=== PATIENT | female | born 1980 | race Caucasian/White ===

== ENCOUNTER 2017-07-19 12:18 | Inpatient (IN) | payer BC, OTHER ==
[2017-07-19] VITALS: BP 134/88
[~2017-07-19] VITALS: Ht 160 cm; Wt 106.6 kg
[2017-07-19 12:41] LABS: *URINE HCG, QUAL NEGATIVE (NEGATIVE)
[2017-07-19 12:53] LABS: *AMPHETAMINE, URINE NEGATIVE (NEGATIVE); *BARBITURATE, URINE NEGATIVE (NEGATIVE); *CANNABINOID, URINE NEGATIVE (NEGATIVE); *COCCAINE, URINE NEGATIVE (NEGATIVE); *OPIATE, URINE NEGATIVE (NEGATIVE); *PHENCYCLIDINE SCREEN,URINE NEGATIVE (NEGATIVE)
[2017-07-19] MEDS ORDERED: MIRALAX 17 GM POWD.PACK PO PRN (13:15)
[2017-07-19] MEDS ORDERED: NICOTINE 14 MG/24HR PATCH TD PRN (13:15)
[2017-07-19] MEDS ORDERED: DIAZEPAM 10 MG TABLET PO PRN (13:15)
[2017-07-19] MEDS ORDERED: ONDANSETRON 4 MG/2 ML VIAL IM PRN (13:15)
[2017-07-19] MEDS ORDERED: DICYCLOMINE HCL 20 MG TABLET PO PRN (13:15)
[2017-07-19] MEDS ORDERED: NICOTINE POLACRILEX 4 MG GUM-PK OF TEN BC PRN (13:15)
[2017-07-19] MEDS ORDERED: DIAZEPAM 5 MG TABLET PO PRN (13:15)
[2017-07-19] MEDS ORDERED: MAGNESIUM HYDROXIDE 30 ML LIQUID UDC PO PRN (13:15)
[2017-07-19] MEDS ORDERED: PRAZOSIN HCL 1 MG CAPSULE PO PRN (13:15)
[2017-07-19] MEDS ORDERED: LOPERAMIDE HCL 2 MG CAPSULE PO PRN ×2 (13:15)
[2017-07-19] MEDS ORDERED: LORAZEPAM 2 MG/1 ML VIAL IM PRN (13:15)
[2017-07-19] MEDS ORDERED: CLONIDINE HCL 0.1 MG TABLET PO PRN (13:15)
[2017-07-19] MEDS ORDERED: MAG HYDROX/AL HYDROX/SIMETH 30 ML LIQUID UDC PO PRN (13:15)
[2017-07-19 13:43] LABS: *URINE HCG, QUAL NEGATIVE (NEGATIVE)
[2017-07-19] MEDS ORDERED: LITH600C PO (13:54)
[2017-07-19] MEDS ORDERED: HYDR50CA5 PO (13:54)
[2017-07-19] MEDS ORDERED: LAMO150T PO (13:54)
[2017-07-19] MEDS ORDERED: PRAZ2CAP2 PO (13:54)
[2017-07-19] MEDS: PHENOBARBITAL 60 MG TABLET PO SCH ×2 (14:11→17:20)
[2017-07-19 15:30] VITALS: BP 137/83
[2017-07-19] MEDS: DIAZEPAM 10 MG TABLET PO PRN ×2 (15:52→22:19)
[2017-07-19 16:00] VITALS: BP 139/87
[2017-07-19 17:04] VITALS: BP 139/87
[2017-07-19] MEDS: IBUPROFEN 600 MG TABLET PO PRN ×2 (17:22→23:37)
[2017-07-19 17:43] LABS: BASOPHILS % (AUTO) 0.7 % (0.0-2.0); EOSINOPHILS # (AUTO) 0.1 K/uL (0.0-0.7); EOSINOPHILS % (AUTO) 0.9 % (0.0-7.0); HEMOGLOBIN 10.3 g/dL (10.9-14.3); LYMPHOCYTES # (AUTO) 1.5 K/uL (20.0-40.0); LYMPHOCYTES % (AUTO) 21.4 % (20.5-51.5); MEAN CORPUSCULAR HEMOGLOBIN 28.3 uug (24.7-32.8); MEAN CORPUSCULAR HGB CONC 32 g/dL (32.3-35.6); MEAN CORPUSCULAR VOLUME 87.7 fL (75.5-95.3); MONOCYTES # (AUTO) 0.7 K/uL (2.0-10.0); MONOCYTES % (AUTO) 9.6 % (0.0-11.0); NEUTROPHILS # (AUTO) 4.6 K/uL (1.8-8.9); NEUTROPHILS % (AUTO) 67.4 % (38.5-71.5); PLATELET COUNT (AUTO) 283 K/uL (179-408); RED BLOOD CELL COUNT(AUTO) 3.64 MIL/uL (3.63-4.92); WHITE BLOOD COUNT (AUTO) 6.8 K/uL (3.8-11.8)
[2017-07-19 17:49] LABS: ETHANOL < 3 MG/DL (0-0); THYROID STIMULATING HORMONE 1.672 mIU/mL (0.358-3.740)
[2017-07-19 18:53] LABS: ALANINE AMINOTRANSFERASE 28 U/L (14-59); ALKALINE PHOSPHATASE 63 U/L (50-136); ASPARTATE AMINOTRANSFERASE 24 U/L (15-37); BILIRUBIN,TOTAL 0.4 mg/dL (0.2-1.0); CARBON DIOXIDE 21 mmol/L (21-32); CHLORIDE 107 mmol/L (98-107); CREATININE 0.9 mg/dL (0.6-1.3); GLUCOSE 85 mg/dL (74-106); MAGNESIUM 1.9 mg/dL (1.8-2.4); POTASSIUM 3.6 mmol/L (3.5-5.1); TOTAL PROTEIN, SERUM 6.8 g/dL (6.4-8.2); UREA NITROGEN, BLOOD 11 mg/dL (7-18)
[2017-07-19 20:00] VITALS: BP 120/88
[2017-07-19] MEDS ORDERED: PHENOBARBITAL 60 MG TABLET PO SCH (22:00)
[2017-07-19] MEDS ORDERED: LAMOTRIGINE 200 MG TABLET PO SCH (22:15)
[2017-07-19] MEDS ORDERED: LITHIUM CARBONATE 300 MG TABLET ONE (22:47)
[2017-07-19] MEDS: LITHIUM CARBONATE 300 MG TABLET PO SCH (23:07)
[2017-07-19] MEDS: ONDANSETRON ODT 4 MG TAB.RAPDIS SL PRN (23:37)
[2017-07-20] VITALS: BP 134/88
[2017-07-20 04:00] VITALS: BP 99/64
[2017-07-20] MEDS: IBUPROFEN 600 MG TABLET PO PRN ×3 (06:13→18:38)
[2017-07-20] MEDS: DIAZEPAM 10 MG TABLET PO PRN ×2 (06:13→12:07)
[2017-07-20 08:00] VITALS: BP 122/81
[2017-07-20] MEDS: MULTIVITAMINS,THERAPEUTIC TABLET PO SCH (08:34)
[2017-07-20] MEDS: PHENOBARBITAL 60 MG TABLET PO SCH ×3 (08:34→20:46)
[2017-07-20] MEDS ORDERED: TUBERCULIN,PURIF.PROT.DERIV. 5 TU/0.1 ML TEST ID ONE (09:00)
[2017-07-20] MEDS: ONDANSETRON ODT 4 MG TAB.RAPDIS SL PRN ×2 (09:09→21:33)
[2017-07-20] MEDS ORDERED: PRAZOSIN HCL 1 MG CAPSULE PO PRN (11:15)
[2017-07-20 12:00] VITALS: BP 129/75
[2017-07-20 16:00] VITALS: BP 139/88
[2017-07-20] MEDS ORDERED: TRAZODONE 50 MG TABLET PO PRN (16:00)
[2017-07-20] MEDS: HYDROXYZINE PAMOATE 25 MG CAPSULE PO PRN (18:38)
[2017-07-20 20:00] VITALS: BP 132/90
[2017-07-20] MEDS: LITHIUM CARBONATE 300 MG TABLET PO SCH (20:46)
[2017-07-20] MEDS: LAMOTRIGINE 200 MG TABLET PO SCH (20:47)
[2017-07-20] MEDS ORDERED: LITHIUM CARBONATE 300 MG TABLET PO SCH (21:00)
[2017-07-20] MEDS: ACETAMINOPHEN 325 MG TABLET PO PRN (21:23)
[2017-07-21] VITALS (7 sets, daily range): BP systolic 119–144; BP diastolic 70–97
[2017-07-21 08:06] LABS: HEPATITIS B SURFACE AG Negative (Negative); VIT D, 25-HYDROXY 18.9 ng/mL (30.0-100.0)
[2017-07-21] MEDS: MULTIVITAMINS,THERAPEUTIC TABLET PO SCH (08:48)
[2017-07-21] MEDS: IBUPROFEN 600 MG TABLET PO PRN (08:49)
[2017-07-21] MEDS: DIAZEPAM 10 MG TABLET PO PRN (08:49)
[2017-07-21] MEDS ORDERED: PHENOBARBITAL 60 MG TABLET PO SCH ×2 (09:00→21:00)
[2017-07-21] MEDS: PHENOBARBITAL 60 MG TABLET PO SCH ×2 (13:16→16:36)
[2017-07-21] MEDS: ASPIRIN/ACETAMINOPHEN/CAFFEINE TABLET PO PRN ×2 (13:20→20:36)
[2017-07-21] MEDS ORDERED: TRAZODONE 50 MG TABLET PO PRN (17:00)
[2017-07-21] MEDS: ONDANSETRON ODT 4 MG TAB.RAPDIS SL PRN (18:25)
[2017-07-21 20:06] LABS: *ANTI-SCLERODERMA-70 AB <0.2 AI (0.0-0.9); *SJOGREN'S ANTI-SS-A 0.2 AI (0.0-0.9); *SJOGREN'S ANTI-SS-B <0.2 AI (0.0-0.9); *SMITH ANTIBODIES 0.3 AI (0.0-0.9); ANTI-DNA(DS) AB, QN 1 IU/mL (0-9)
[2017-07-21] MEDS: LITHIUM CARBONATE 300 MG TABLET PO SCH (20:33)
[2017-07-21] MEDS: TRAZODONE 100 MG TABLET PO PRN (20:34)
[2017-07-21] MEDS: PRAZOSIN HCL 1 MG CAPSULE PO PRN (20:35)
[2017-07-21] MEDS: LAMOTRIGINE 200 MG TABLET PO SCH (20:36)
[2017-07-21] MEDS: HYDROXYZINE PAMOATE 25 MG CAPSULE PO PRN (20:43)
[2017-07-22 04:09] VITALS: BP 110/63
[2017-07-22] MEDS: CLONIDINE HCL 0.1 MG TABLET PO PRN (04:14)
[2017-07-22] MEDS: ONDANSETRON ODT 4 MG TAB.RAPDIS SL PRN ×3 (04:21→21:04)
[2017-07-22] MEDS: IBUPROFEN 800 MG TABLET PO PRN ×2 (04:21→15:19)
[2017-07-22 08:00] VITALS: BP 99/56
[2017-07-22] MEDS: PHENOBARBITAL 60 MG TABLET PO SCH ×3 (08:59→21:05)
[2017-07-22] MEDS: MULTIVITAMINS,THERAPEUTIC TABLET PO SCH (09:00)
[2017-07-22] MEDS: CHOLECALCIFEROL 1,000 UNIT TABLET PO SCH (09:00)
[2017-07-22] MEDS: ASPIRIN/ACETAMINOPHEN/CAFFEINE TABLET PO PRN ×2 (09:01→21:05)
[2017-07-22] MEDS: HYDROXYZINE PAMOATE 25 MG CAPSULE PO PRN ×2 (09:01→21:05)
[2017-07-22 12:15] VITALS: BP 121/79
[2017-07-22] MEDS ORDERED: LAMO200T2 PO (12:59)
[2017-07-22] MEDS ORDERED: HYDR-3895 PO (12:59)
[2017-07-22] MEDS ORDERED: IBUP-1957 PO (12:59)
[2017-07-22] MEDS ORDERED: DIPH50CA37 PO (12:59)
[2017-07-22] MEDS ORDERED: PRAZ1CAP2 PO (12:59)
[2017-07-22] MEDS ORDERED: TRAZ-147 PO (12:59)
[2017-07-22] MEDS ORDERED: CHOL10002 PO (12:59)
[2017-07-22] MEDS ORDERED: CLON0.1T14 PO (12:59)
[2017-07-22] MEDS ORDERED: LITH300T3 PO (12:59)
[2017-07-22] MEDS ORDERED: OXCA150T5 PO (12:59)
[2017-07-22] MEDS ORDERED: OXCARBAZEPINE 150 MG TABLET PO ONE (13:00)
[2017-07-22 16:30] VITALS: BP 110/71
[2017-07-22 20:00] VITALS: BP 115/80
[2017-07-22] MEDS: PRAZOSIN HCL 1 MG CAPSULE PO PRN (21:05)
[2017-07-22] MEDS: LITHIUM CARBONATE 300 MG TABLET PO SCH (21:05)
[2017-07-22] MEDS: OXCARBAZEPINE 150 MG TABLET PO SCH (21:06)
[2017-07-22] MEDS: LAMOTRIGINE 200 MG TABLET PO SCH (21:06)
[2017-07-22] MEDS: TRAZODONE 100 MG TABLET PO PRN (21:06)
[2017-07-22] MEDS: diphenhydrAMINE 50 MG CAPSULE PO PRN (22:30)
[2017-07-23 08:00] VITALS: BP 113/62
[2017-07-23] MEDS: MULTIVITAMINS,THERAPEUTIC TABLET PO SCH (08:56)
[2017-07-23] MEDS: CHOLECALCIFEROL 1,000 UNIT TABLET PO SCH (08:56)
[2017-07-23] MEDS: PHENOBARBITAL 60 MG TABLET PO SCH ×2 (08:57→20:54)
[2017-07-23] MEDS: OXCARBAZEPINE 150 MG TABLET PO SCH ×2 (08:57→20:54)
[2017-07-23] MEDS: ASPIRIN/ACETAMINOPHEN/CAFFEINE TABLET PO PRN (09:02)
[2017-07-23 12:00] VITALS: BP 121/74
[2017-07-23] MEDS: CLONIDINE HCL 0.1 MG TABLET PO PRN (15:51)
[2017-07-23] MEDS: HYDROXYZINE PAMOATE 25 MG CAPSULE PO PRN ×2 (15:51→22:28)
[2017-07-23 16:00] VITALS: BP 130/90
[2017-07-23 20:00] VITALS: BP 131/81
[2017-07-23] MEDS: TRAZODONE 100 MG TABLET PO PRN (20:54)
[2017-07-23] MEDS: IBUPROFEN 800 MG TABLET PO PRN (20:54)
[2017-07-23] MEDS: PRAZOSIN HCL 1 MG CAPSULE PO PRN (20:54)
[2017-07-23] MEDS: LAMOTRIGINE 200 MG TABLET PO SCH (20:54)
[2017-07-23] MEDS: LITHIUM CARBONATE 300 MG TABLET PO SCH (20:54)
[2017-07-23] MEDS: diphenhydrAMINE 50 MG CAPSULE PO PRN (22:28)
[2017-07-23] MEDS: ACETAMINOPHEN 325 MG TABLET PO PRN (22:33)
[2017-07-24] MEDS: IBUPROFEN 800 MG TABLET PO PRN (05:55)
[2017-07-24] MEDS: HYDROXYZINE PAMOATE 25 MG CAPSULE PO PRN (05:55)
[2017-07-24] MEDS: OXCARBAZEPINE 150 MG TABLET PO SCH (08:24)
[2017-07-24] MEDS: CHOLECALCIFEROL 1,000 UNIT TABLET PO SCH (08:24)
[2017-07-24] MEDS: MULTIVITAMINS,THERAPEUTIC TABLET PO SCH (08:25)
[2017-07-24] MEDS ORDERED: PHENOBARBITAL 60 MG TABLET PO SCH (09:00)
[2017-07-24 09:21] VITALS: BP 117/68
[2017-07-24] MEDS ORDERED: PSEUDOEPHEDRINE HCL 30 MG TABLET PO PRN (10:30)
[2017-07-24] MEDS ORDERED: FLUTICASONE PROP NASAL SPRAY 16 GM BOTTLE NS SCH (10:30)
[2017-07-24] MEDS ORDERED: CETIRIZINE HCL 10 MG TABLET PO SCH (10:30)
[2017-07-24 12:00] VITALS: BP 120/78
== END 2017-07-24 14:05 | disposition other institution (70) | DRG 895 ==
LOC: SRC 12:18
PROVIDERS: ADMIT Internal Medicine; ATTEND Internal Medicine
PROC: HZ2ZZZZ Detoxification Services for Substance Abuse Treatment (ICD-10-PCS; principal; 2017-07-19)
PROC: HZ31ZZZ Individual Counseling for Substance Abuse Treatment, Behavioral (ICD-10-PCS; 2017-07-21)
DX: F13.232 Sedative, hypnotic or anxiolytic dependence with withdrawal with perceptual disturbance (principal); M32.9 Systemic lupus erythematosus, unspecified; I15.9 Secondary hypertension, unspecified; Z85.41 Personal history of malignant neoplasm of cervix uteri; Z91.5 Personal history of self-harm; G47.00 Insomnia, unspecified; Z81.8 Family history of other mental and behavioral disorders; Z88.6 Allergy status to analgesic agent; G47.50 Parasomnia, unspecified; E55.9 Vitamin D deficiency, unspecified; D64.9 Anemia, unspecified; Z81.1 Family history of alcohol abuse and dependence; Z82.49 Family history of ischemic heart disease and other diseases of the circulatory system; Z98.84 Bariatric surgery status; F17.210 Nicotine dependence, cigarettes, uncomplicated; F39 Unspecified mood [affective] disorder
CPT/HCPCS: 36415; 70030-TC; 80307; 80346; 82306; 82746; 83735; 84443; 84703; 85025; 85651; 86038; 86580; 86592; 86705; 86803; 87340; 87806; A9150; G0480; J3535; J8499; Q0162; Q0163